=== PATIENT | male | born 1990 ===

== ENCOUNTER → 2024-08-24 | Outpatient (CLI) | payer BC ==
[2024-08-25 13:16] LABS: Chlamydia Trachomatis Urine NOT DETECTED (NOT DETECT); Neisseria Gonorrhoea Urine NOT DETECTED (NOT DETECT)
[2024-08-28 10:44] LABS: HIV 1,2 COMBO ANTIGEN/ANTIBODY Negative (Negative)
== END ==
LOC: LAB SHORT 18:06 → LAB 18:06
PROVIDERS: Physician Assistant
DX: R30.0 Dysuria (principal); R53.83 Other fatigue
CPT/HCPCS: 86592; 87389; 87491; 87591